=== PATIENT | female | born 1955 | race Caucasian/White ===

== ENCOUNTER 2021-03-21 14:21 | Outpatient (CLI) | payer OTHER ==
[2021-03-21 15:34] LABS: Hemoglobin 12.6 g/dL (12.0-15.5); Mean Corpuscular HGB CONC 34.1 g/dL (32.0-36.0); Mean Corpuscular Hemoglobin 29.5 pg (27.0-33.0); Mean Corpuscular Volume 86.4 fl (81.6-98.3); RBC Distribution Width 16.4 % (11.5-14.5); Red Blood Cell (RBC) Count 4.27 10x6/uL (3.90-5.03); White Blood Cell (WBC) Count 7.2 10x3/uL (3.5-10.5)
[2021-03-21 15:46] LABS: Platelet Count 165 10x3/uL (150-450)
[2021-03-21 16:06] LABS: Anion Gap 17 mmol/L (10-20); BUN (Urea Nitrogen) 17 mg/dL (9.8-20.1); Calc. Creatinine Clearance 0 mL/min (70-130); Calcium 9.4 mg/dL (7.8-10.44); Carbon Dioxide 25 mmol/L (23-31); Chloride 102 mmol/L (98-107); Glucose 260 mg/dL (80-115); Potassium 4.5 mmol/L (3.5-5.1); Sodium 139 mmol/L (136-145)
[2021-03-22 01:18] LABS: SARS-CoV-2 PCR by NAA Not Detected (NotDetected)
== END 2021-03-21 14:22 | disposition home or self-care (01) ==
LOC: LABBT 14:21
PROVIDERS: ATTEND Orthopaedic Surgery
DX: Z01.818 Encounter for other preprocedural examination (principal); M75.41 Impingement syndrome of right shoulder; M75.101 Unspecified rotator cuff tear or rupture of right shoulder, not specified as traumatic; Z20.822 Contact with and (suspected) exposure to COVID-19
CPT/HCPCS: 80048; 85027; 87635; 93005; 93010; U0003; U0005

== ENCOUNTER 2021-04-11 13:48 | Outpatient (CLI) | payer OTHER ==
[2021-04-11 17:41] LABS: Hemoglobin 13.2 g/dL (12.0-15.5); Mean Corpuscular HGB CONC 33.6 g/dL (32.0-36.0); Mean Corpuscular Hemoglobin 29.7 pg (27.0-33.0); Mean Corpuscular Volume 88.5 fl (81.6-98.3); Mean Platelet Volume 11.3 fl (7.4-10.4); Platelet Count 188 10x3/uL (150-450); RBC Distribution Width 16.5 % (11.5-14.5); Red Blood Cell (RBC) Count 4.44 10x6/uL (3.90-5.03); White Blood Cell (WBC) Count 6.4 10x3/uL (3.5-10.5)
[2021-04-11 17:53] LABS: Anion Gap 17 mmol/L (10-20); BUN (Urea Nitrogen) 21 mg/dL (9.8-20.1); Calc. Creatinine Clearance 0 mL/min (70-130); Carbon Dioxide 26 mmol/L (23-31); Chloride 102 mmol/L (98-107); Glucose 136 mg/dL (80-115); Potassium 4.3 mmol/L (3.5-5.1); Sodium 141 mmol/L (136-145)
[2021-04-12 02:11] LABS: SARS-CoV-2 PCR by NAA Not Detected (NotDetected)
== END 2021-04-11 13:49 | disposition home or self-care (01) ==
LOC: LABBT 13:48
PROVIDERS: ATTEND Orthopaedic Surgery
DX: Z01.812 Encounter for preprocedural laboratory examination (principal); M75.41 Impingement syndrome of right shoulder; M75.101 Unspecified rotator cuff tear or rupture of right shoulder, not specified as traumatic; Z20.822 Contact with and (suspected) exposure to COVID-19
CPT/HCPCS: 80048; 85027; 87635; U0003; U0005

== ENCOUNTER 2021-04-14 10:27 | Day surgery (SDC) | payer OTHER ==
[2021-04-13 14:55] VITALS: BMI 27.4
[2021-04-14] MEDS ORDERED: Midazolam HCl 2 mg/2 ml Vial ONE (12:11)
[2021-04-14] MEDS ORDERED: Fentanyl 100 MCG/2 ML VIAL ONE ×2 (12:11→12:40)
[2021-04-14] MEDS ORDERED: Fentanyl 100 MCG/2 ML VIAL IV PRN (12:43)
[2021-04-14] MEDS ORDERED: Promethazine HCl 25 MG/ML VIAL IM PRN (12:45)
[2021-04-14] MEDS ORDERED: traMADol HCl 50 MG TAB PO PRN ×2 (12:45)
[2021-04-14] MEDS ORDERED: Ondansetron PF 4 MG/2 ML Vial IVP PRN (12:45)
[2021-04-14] MEDS ORDERED: Ropivacaine 0.2% 550 ML 550 ML NERVE BLCK SCH (12:45)
[2021-04-14] MEDS ORDERED: Zolpidem Tartrate 5 MG TAB PO PRN (12:45)
[2021-04-14] MEDS ORDERED: HYDROcodone/Acetaminophen 5/325 mg Tablet PO PRN ×2 (12:45)
[2021-04-14] MEDS ORDERED: Ondansetron PF 4 MG/2 ML Vial ONE (13:26)
[2021-04-14] MEDS ORDERED: PROPOFOL 200 MG/20 ML VIAL ONE (13:26)
[2021-04-14] MEDS ORDERED: Succinylcholine 200 MG/10 ml SYRINGE FS ONE (13:26)
[2021-04-14] MEDS ORDERED: Glycopyrrolate 0.2 MG/ML 5 ML SYRINGE ONE (13:26)
[2021-04-14] MEDS ORDERED: ePHEDrine Sulfate 50 MG/10 ML VIAL ONE (13:26)
[2021-04-14] MEDS ORDERED: Ropivacaine 0.5% HCl/PF (150 MG/30 ML VIAL) ONE (13:26)
[2021-04-14] MEDS ORDERED: Lidocaine 1% PF 5 ML VIAL ONE (13:26)
[2021-04-14] MEDS ORDERED: Rocuronium Bromide 10 MG/ML (10ML VIAL) ONE (13:26)
== END 2021-04-14 17:35 | disposition home or self-care (01) ==
LOC: SDC 10:27
PROVIDERS: ATTEND Orthopaedic Surgery
PROC: 3E0T3BZ Introduction of Anesthetic Agent into Peripheral Nerves and Plexi, Percutaneous Approach (ICD-10-PCS; principal; 2021-04-14)
PROC: 0RBJ4ZZ Excision of Right Shoulder Joint, Percutaneous Endoscopic Approach (ICD-10-PCS; principal; 2021-04-14)
PROC: 0LQ14ZZ Repair Right Shoulder Tendon, Percutaneous Endoscopic Approach (ICD-10-PCS; principal; 2021-04-14)
DX: S46.011A Strain of muscle(s) and tendon(s) of the rotator cuff of right shoulder, initial encounter (principal); M75.41 Impingement syndrome of right shoulder; M65.811 Other synovitis and tenosynovitis, right shoulder; G89.18 Other acute postprocedural pain; E11.9 Type 2 diabetes mellitus without complications; F17.200 Nicotine dependence, unspecified, uncomplicated; Z79.82 Long term (current) use of aspirin; Z79.84 Long term (current) use of oral hypoglycemic drugs; Z79.899 Other long term (current) drug therapy; Z95.5 Presence of coronary angioplasty implant and graft; W19.XXXA Unspecified fall, initial encounter; Y99.0 Civilian activity done for income or pay
CPT/HCPCS: A4306; C1713; J0690; J2250; J2405; J2704; J2795; J3010

== ENCOUNTER 2021-11-09 15:15 | Inpatient (IN) | payer MEDICARE, OTHER ==
[2021-11-09] MEDS ORDERED: Morphine 4 MG/ML VIAL ONE ×2 (15:43→17:27)
[2021-11-09] MEDS ORDERED: CEFAZOLIN 2 GM in Premix Bag 1 BAG IVPB SCH (17:15)
[2021-11-09 17:21] LABS: #Eosinphils 0.1 thou/uL (0.0-0.7); #Lymphocytes 1.8 thou/uL (1.20-3.40); #Monocytes 0.6 thou/uL (0.11-0.59); %Basophils 0.2 % (0.0-1.0); %Eosinophils 0.9 % (0.0-10.0); %Lymphocytes 21.6 % (21.0-51.0); %Monocytes 6.5 % (0.0-10.0); %Neutrophils 70.8 % (42.0-75.0); Hemoglobin 13.3 g/dL (12.0-16.0); Mean Corpuscular HGB CONC 34.8 g/dL (32.0-36.0); Mean Corpuscular Hemoglobin 30.6 pg (27.0-31.0); Mean Platelet Volume 8.7 fL (7.4-10.4); Platelet Count 141 thou/uL (130-400); RBC Distribution Width 14.5 % (11.5-14.5); Red Blood Cell (RBC) Count 4.35 mill/uL (4.20-5.40); White Blood Cell (WBC) Count 8.4 thou/uL (4.8-10.8)
[2021-11-09 17:36] LABS: INR-International Normal Ratio 1.1; PTT 30.7 sec (22.9-36.1); Prothrombin Time 14.3 sec (12.0-14.7)
[2021-11-09] MEDS ORDERED: Ondansetron PF 4 MG/2 ML Vial IVP PRN (17:40)
[2021-11-09] MEDS ORDERED: hydrALAZINE 20 MG/ML VIAL SLOW IVP PRN (17:40)
[2021-11-09] MEDS ORDERED: Dextrose 50% Abboject 50 ML SYRINGE SLOW IVP PRN (17:40)
[2021-11-09] MEDS ORDERED: Dextrose 5% in Water 1,000 ML IV PRN (17:40)
[2021-11-09] MEDS ORDERED: traMADol HCl 50 MG TAB PO PRN ×2 (17:43)
[2021-11-09] MEDS ORDERED: Sodium Chloride 0.9% 1,000 ML IV SCH (17:45)
[2021-11-09 17:53] LABS: ALT (SGPT) 32 U/L (8-55); AST (SGOT) 39 U/L (5-34); Albumin 4.2 g/dL (3.4-4.8); Alkaline Phosphatase 63 U/L (40-110); Anion Gap 14 mmol/L (10-20); BUN (Urea Nitrogen) 14 mg/dL (9.8-20.1); Bilirubin, Total 0.7 mg/dL (0.2-1.2); Calc. Creatinine Clearance 0 mL/min (70-130); Carbon Dioxide 27 mmol/L (23-31); Chloride 105 mmol/L (98-107); Globulin 2.4 g/dL (2.4-3.5); Glucose 84 mg/dL (80-115); Potassium 3.9 mmol/L (3.5-5.1); Protein, Total 6.6 g/dL (5.8-8.1); Sodium 142 mmol/L (136-145)
[2021-11-09] MEDS ORDERED: Cyclobenzaprine 10 MG TAB ONE (18:28)
[2021-11-09] MEDS: Acetaminophen 500 MG TAB PO SCH ×2 (19:48→23:52)
[2021-11-09] MEDS: Famotidine/PF 20 mg/2ml Vial SLOW IVP SCH (20:46)
[2021-11-09] MEDS: Gabapentin 100 MG CAP PO SCH (20:46)
[2021-11-09] MEDS: Senokot S 8.6-50 MG TAB PO SCH (20:47)
[2021-11-09 21:04] VITALS: BMI 26.3
[2021-11-09] MEDS: Insulin Regular 300 UNITS/3 ML VIAL SC PRN (22:01)
[2021-11-10] LABS: SARS-CoV-2 NAA Rapid Test Not Detected (NotDetected)
[2021-11-10] MEDS ORDERED: Sodium Chloride 0.9% 1,000 ML IV SCH (00:01)
[2021-11-10] MEDS: Morphine 4 MG/ML VIAL SLOW IVP PRN ×2 (04:36→09:58)
[2021-11-10] MEDS: Acetaminophen 500 MG TAB PO SCH ×4 (06:29→23:19)
[2021-11-10 07:13] LABS: #Eosinphils 0.2 thou/uL (0.0-0.7); #Lymphocytes 1.5 thou/uL (1.20-3.40); #Monocytes 0.7 thou/uL (0.11-0.59); #Neutrophils 5.3 thou/uL (1.40-6.50); %Basophils 0.2 % (0.0-1.0); %Eosinophils 2.9 % (0.0-10.0); %Lymphocytes 19.4 % (21.0-51.0); %Monocytes 8.7 % (0.0-10.0); %Neutrophils 68.8 % (42.0-75.0); Anion Gap 12 mmol/L (10-20); BUN (Urea Nitrogen) 15 mg/dL (9.8-20.1); Calc. Creatinine Clearance 72 mL/min (70-130); Calcium 8.8 mg/dL (7.8-10.44); Carbon Dioxide 26 mmol/L (23-31); Chloride 107 mmol/L (98-107); Glucose 114 mg/dL (80-115); Hemoglobin 12.1 g/dL (12.0-16.0); Magnesium 1.7 mg/dL (1.6-2.6); Mean Corpuscular HGB CONC 34.5 g/dL (32.0-36.0); Mean Corpuscular Hemoglobin 30.3 pg (27.0-31.0); Mean Corpuscular Volume 87.9 fL (78.0-98.0); Phosphorus 3.7 mg/dL (2.3-4.7); Platelet Count 120 thou/uL (130-400); Potassium 3.9 mmol/L (3.5-5.1); RBC Distribution Width 14.7 % (11.5-14.5); Red Blood Cell (RBC) Count 3.99 mill/uL (4.20-5.40); Sodium 141 mmol/L (136-145); White Blood Cell (WBC) Count 7.7 thou/uL (4.8-10.8)
[2021-11-10] MEDS ORDERED: Magnesium 2 GM/50 ML 2 GM in Premix Bag 1 BAG IVPB SCH (08:00)
[2021-11-10] MEDS ORDERED: PHOS-NAK 1 PKT PACK PO SCH (08:00)
[2021-11-10] MEDS ORDERED: FLU VACC QS2021-22(65YR UP)/PF 240 MCG/0.7 ML SYRINGE IM ONE (09:00)
[2021-11-10] MEDS ORDERED: Atenolol 25 MG TAB PO SCH (09:00)
[2021-11-10] MEDS: Famotidine/PF 20 mg/2ml Vial SLOW IVP SCH ×2 (09:42→19:50)
[2021-11-10] MEDS: Gabapentin 100 MG CAP PO SCH ×3 (09:43→19:49)
[2021-11-10] MEDS: Polyethylene Glycol 3350 17 GM Packet PO SCH (09:43)
[2021-11-10] MEDS: Senokot S 8.6-50 MG TAB PO SCH ×2 (09:44→19:49)
[2021-11-10] MEDS: Rosuvastatin 20 MG TAB PO SCH (09:58)
[2021-11-10] MEDS ORDERED: Fentanyl 100 MCG/2 ML VIAL ONE (12:19)
[2021-11-10] MEDS ORDERED: ceFAZolin 2 GM/DEX 5% 100 ML BAG ONE (13:04)
[2021-11-10] MEDS ORDERED: Dexamethasone 20 MG/5 ML VIAL ONE (13:17)
[2021-11-10] MEDS ORDERED: Phenylephrine 10 MG/ML VIAL ONE (13:17)
[2021-11-10] MEDS ORDERED: Lidocaine 1% PF 5 ML VIAL ONE (13:17)
[2021-11-10] MEDS ORDERED: Rocuronium Bromide 10 MG/ML (10ML VIAL) ONE (13:17)
[2021-11-10] MEDS ORDERED: PROPOFOL 200 MG/20 ML VIAL ONE (13:17)
[2021-11-10] MEDS ORDERED: Glycopyrrolate 0.2 MG/ML 5 ML SYRINGE ONE (13:17)
[2021-11-10] MEDS ORDERED: ePHEDrine 50 MG/ML VIAL ONE (13:17)
[2021-11-10] MEDS ORDERED: Ondansetron PF 4 MG/2 ML Vial ONE (13:17)
[2021-11-10] MEDS: Icosapent Ethyl 1 GM CAPSULE PO SCH (18:52)
[2021-11-10] MEDS: Atenolol 50 MG TAB PO SCH (19:50)
[2021-11-10] MEDS ORDERED: Atenolol 50 MG TAB PO SCH (21:00)
[2021-11-10] MEDS: ceFAZolin Sodium/D5W 2 GM in Premix Bag 1 BAG IVPB SCH (21:24)
[2021-11-10] MEDS: Insulin Regular 300 UNITS/3 ML VIAL SC PRN (21:24)
[2021-11-11] MEDS: Acetaminophen 500 MG TAB PO SCH ×4 (06:16→23:50)
[2021-11-11] MEDS: CEFAZOLIN 2 GM in Premix Bag 1 BAG IVPB SCH ×2 (06:19→14:47)
[2021-11-11] MEDS: ceFAZolin Sodium/D5W 2 GM in Premix Bag 1 BAG IVPB SCH (06:22)
[2021-11-11 06:31] LABS: #Eosinphils 0.1 thou/uL (0.0-0.7); #Monocytes 0.7 thou/uL (0.11-0.59); #Neutrophils 7.6 thou/uL (1.40-6.50); %Basophils 0.4 % (0.0-1.0); %Eosinophils 0.9 % (0.0-10.0); %Lymphocytes 10.7 % (21.0-51.0); %Monocytes 7.8 % (0.0-10.0); %Neutrophils 80.2 % (42.0-75.0); Hemoglobin 10.3 g/dL (12.0-16.0); Mean Corpuscular HGB CONC 34.2 g/dL (32.0-36.0); Mean Corpuscular Hemoglobin 30.2 pg (27.0-31.0); Mean Corpuscular Volume 88.3 fL (78.0-98.0); Mean Platelet Volume 8.9 fL (7.4-10.4); Platelet Count 124 thou/uL (130-400); RBC Distribution Width 14.9 % (11.5-14.5); Red Blood Cell (RBC) Count 3.39 mill/uL (4.20-5.40); White Blood Cell (WBC) Count 9.5 thou/uL (4.8-10.8)
[2021-11-11 06:48] LABS: Anion Gap 13 mmol/L (10-20); BUN (Urea Nitrogen) 16 mg/dL (9.8-20.1); Calc. Creatinine Clearance 71 mL/min (70-130); Calcium 8.8 mg/dL (7.8-10.44); Carbon Dioxide 26 mmol/L (23-31); Chloride 102 mmol/L (98-107); Glucose 124 mg/dL (80-115); Phosphorus 3.6 mg/dL (2.3-4.7); Potassium 4.2 mmol/L (3.5-5.1); Sodium 137 mmol/L (136-145)
[2021-11-11] MEDS ORDERED: Sodium Chloride 0.9% 1,000 ML IV SCH (08:45)
[2021-11-11] MEDS: Icosapent Ethyl 1 GM CAPSULE PO SCH ×2 (09:58→18:06)
[2021-11-11] MEDS: Rosuvastatin 20 MG TAB PO SCH (09:59)
[2021-11-11] MEDS: Famotidine/PF 20 mg/2ml Vial SLOW IVP SCH (09:59)
[2021-11-11] MEDS: Polyethylene Glycol 3350 17 GM Packet PO SCH (09:59)
[2021-11-11] MEDS: Gabapentin 100 MG CAP PO SCH ×3 (09:59→20:41)
[2021-11-11] MEDS: Senokot S 8.6-50 MG TAB PO SCH ×2 (10:00→20:41)
[2021-11-11] MEDS: Cyclobenzaprine 10 MG TAB PO PRN (10:04)
[2021-11-11] MEDS: Aspirin 81 mg Enteric Coated Tablet PO SCH ×2 (10:04→20:42)
[2021-11-11] MEDS: Insulin Regular 300 UNITS/3 ML VIAL SC PRN ×2 (12:31→18:06)
[2021-11-11] MEDS: Atenolol 50 MG TAB PO SCH (20:42)
[2021-11-12 05:39] LABS: #Eosinphils 0.3 thou/uL (0.0-0.7); #Lymphocytes 1.6 thou/uL (1.20-3.40); #Monocytes 0.5 thou/uL (0.11-0.59); #Neutrophils 4.2 thou/uL (1.40-6.50); %Basophils 0.3 % (0.0-1.0); %Eosinophils 4.7 % (0.0-10.0); %Lymphocytes 24.2 % (21.0-51.0); %Monocytes 7.9 % (0.0-10.0); Hemoglobin 8.7 g/dL (12.0-16.0); Mean Corpuscular HGB CONC 34.7 g/dL (32.0-36.0); Mean Corpuscular Hemoglobin 30.7 pg (27.0-31.0); Mean Corpuscular Volume 88.3 fL (78.0-98.0); Mean Platelet Volume 8.5 fL (7.4-10.4); Platelet Count 108 thou/uL (130-400); RBC Distribution Width 14.9 % (11.5-14.5); Red Blood Cell (RBC) Count 2.83 mill/uL (4.20-5.40); White Blood Cell (WBC) Count 6.7 thou/uL (4.8-10.8)
[2021-11-12 06:07] LABS: Anion Gap 12 mmol/L (10-20); BUN (Urea Nitrogen) 13 mg/dL (9.8-20.1); Calc. Creatinine Clearance 75 mL/min (70-130); Calcium 8.4 mg/dL (7.8-10.44); Carbon Dioxide 25 mmol/L (23-31); Chloride 107 mmol/L (98-107); Glucose 157 mg/dL (80-115); Magnesium 1.7 mg/dL (1.6-2.6); Phosphorus 1.9 mg/dL (2.3-4.7); Potassium 3.8 mmol/L (3.5-5.1); Sodium 140 mmol/L (136-145)
[2021-11-12] MEDS: Acetaminophen 500 MG TAB PO SCH ×4 (06:23→23:43)
[2021-11-12] MEDS ORDERED: Magnesium Sulfate 2 GM in Sodium Chloride 0.9% 100 ML IVPB SCH (06:35)
[2021-11-12] MEDS ORDERED: Potassium Phosphate 30 MMOL, Magnesium Sulfate 2 GM in Sodium Chloride 0.9% 250 ML IVPB SCH (08:00)
[2021-11-12] MEDS: Polyethylene Glycol 3350 17 GM Packet PO SCH (09:44)
[2021-11-12] MEDS: Rosuvastatin 20 MG TAB PO SCH (09:44)
[2021-11-12] MEDS: Icosapent Ethyl 1 GM CAPSULE PO SCH ×2 (09:44→16:39)
[2021-11-12] MEDS: Senokot S 8.6-50 MG TAB PO SCH ×2 (09:44→20:10)
[2021-11-12] MEDS: Aspirin 81 mg Enteric Coated Tablet PO SCH ×2 (09:44→20:11)
[2021-11-12] MEDS: Gabapentin 100 MG CAP PO SCH ×3 (09:45→20:11)
[2021-11-12] MEDS: Insulin Regular 300 UNITS/3 ML VIAL SC PRN ×2 (13:28→16:38)
[2021-11-12] MEDS: Cyclobenzaprine 10 MG TAB PO PRN (20:10)
[2021-11-12] MEDS: Atenolol 50 MG TAB PO SCH (20:14)
[2021-11-12] MEDS ORDERED: Ezetimibe 10 MG TAB PO SCH (21:00)
[2021-11-13] MEDS: Acetaminophen 500 MG TAB PO SCH ×2 (05:29→12:07)
[2021-11-13 06:12] LABS: #Eosinphils 0.3 thou/uL (0.0-0.7); #Lymphocytes 1.7 thou/uL (1.20-3.40); #Monocytes 0.4 thou/uL (0.11-0.59); #Neutrophils 3.2 thou/uL (1.40-6.50); %Basophils 0.4 % (0.0-1.0); %Eosinophils 4.9 % (0.0-10.0); %Lymphocytes 30.7 % (21.0-51.0); Hemoglobin 8.8 g/dL (12.0-16.0); Mean Corpuscular HGB CONC 33.7 g/dL (32.0-36.0); Mean Corpuscular Hemoglobin 30.3 pg (27.0-31.0); Mean Corpuscular Volume 89.8 fL (78.0-98.0); Mean Platelet Volume 8.8 fL (7.4-10.4); Platelet Count 129 thou/uL (130-400); Red Blood Cell (RBC) Count 2.91 mill/uL (4.20-5.40); White Blood Cell (WBC) Count 5.7 thou/uL (4.8-10.8)
[2021-11-13 06:56] LABS: Anion Gap 14 mmol/L (10-20); BUN (Urea Nitrogen) 12 mg/dL (9.8-20.1); Calc. Creatinine Clearance 79 mL/min (70-130); Calcium 9.1 mg/dL (7.8-10.44); Carbon Dioxide 20 mmol/L (23-31); Chloride 109 mmol/L (98-107); Glucose 150 mg/dL (80-115); Magnesium 1.6 mg/dL (1.6-2.6); Potassium 4.1 mmol/L (3.5-5.1); Sodium 139 mmol/L (136-145)
[2021-11-13] MEDS ORDERED: PHOS-NAK 1 PKT PACK PO SCH (08:00)
[2021-11-13] MEDS ORDERED: Magnesium 2 GM/50 ML 2 GM in Premix Bag 1 BAG IVPB SCH (08:00)
[2021-11-13] MEDS: Senokot S 8.6-50 MG TAB PO SCH (09:50)
[2021-11-13] MEDS: Aspirin 81 mg Enteric Coated Tablet PO SCH (09:50)
[2021-11-13] MEDS: Polyethylene Glycol 3350 17 GM Packet PO SCH (09:50)
[2021-11-13] MEDS: Rosuvastatin 20 MG TAB PO SCH (09:50)
[2021-11-13] MEDS: Icosapent Ethyl 1 GM CAPSULE PO SCH (09:50)
[2021-11-13] MEDS: Gabapentin 100 MG CAP PO SCH ×2 (09:51→15:58)
[2021-11-13] MEDS: Insulin Regular 300 UNITS/3 ML VIAL SC PRN (12:06)
[2021-11-13 16:21] VITALS: BP 115/70; TEMP 98.2
== END 2021-11-13 16:38 | disposition home or self-care (01) | DRG 522 ==
LOC: ERS 15:15 → SURG A 17:43
PROVIDERS: ADMIT Specialist; ATTEND Specialist
PROC: 0SRS0JZ Replacement of Left Hip Joint, Femoral Surface with Synthetic Substitute, Open Approach (ICD-10-PCS; principal; 2021-11-09)
DX: S72.032A Displaced midcervical fracture of left femur, initial encounter for closed fracture (principal); W18.30XA Fall on same level, unspecified, initial encounter; Z20.822 Contact with and (suspected) exposure to COVID-19; E11.51 Type 2 diabetes mellitus with diabetic peripheral angiopathy without gangrene; I10 Essential (primary) hypertension; E78.5 Hyperlipidemia, unspecified; F17.220 Nicotine dependence, chewing tobacco, uncomplicated; Z79.82 Long term (current) use of aspirin; Z79.84 Long term (current) use of oral hypoglycemic drugs; Z79.899 Other long term (current) drug therapy; E83.39 Other disorders of phosphorus metabolism
CPT/HCPCS: 36415; 36416; 71045; 72170; 80048; 80053; 83735; 84100; 85025; 85610; 85730; 93005; 96374; 96376; C1713; C1776; G0390; J0690; J1100; J1815; J2270; J2370; J2405; J2704; J3010; J3475; J3490; J7030; J7050; S0028; U0002

== ENCOUNTER 2022-06-09 12:58 | Outpatient (CLI) | payer MEDICARE | END 2022-06-09 12:59 | disposition home or self-care (01) | LOC: BICMAMMO 12:58 | PROVIDERS: ATTEND Family Medicine | DX: Z12.31 Encounter for screening mammogram for malignant neoplasm of breast (principal) | CPT/HCPCS: 77063; 77067 ==

== ENCOUNTER 2022-09-18 09:16 | Outpatient (CLI) | payer MEDICARE ==
[2022-09-18] MEDS ORDERED: Iopamidol-370 76% 500 ML 1 ML ONE (12:12)
== END 2022-09-18 09:17 | disposition home or self-care (01) ==
LOC: BICCT 09:16
PROVIDERS: ATTEND Optometrist
DX: E07.89 Other specified disorders of thyroid (principal); E04.2 Nontoxic multinodular goiter
CPT/HCPCS: 70491; 82565; Q9967

== ENCOUNTER 2022-10-23 14:24 | Outpatient (CLI) | payer MEDICARE | END 2022-10-23 14:25 | disposition home or self-care (01) | LOC: BICULT 14:24 | PROVIDERS: ATTEND Internal Medicine Cardiovascular Disease | DX: E07.9 Disorder of thyroid, unspecified (principal) | CPT/HCPCS: 76536 ==

== ENCOUNTER 2023-01-23 10:34 | Outpatient (CLI) | payer MEDICARE | END 2023-01-23 10:35 | disposition home or self-care (01) | LOC: BICMAMMO 10:34 | PROVIDERS: ATTEND Internal Medicine Endocrinology, Diabetes & Metabolism | DX: M81.8 Other osteoporosis without current pathological fracture (principal); M85.89 Other specified disorders of bone density and structure, multiple sites | CPT/HCPCS: 77080 ==

== ENCOUNTER 2023-01-30 12:25 | Outpatient (CLI) | payer MEDICARE | END 2023-01-30 12:26 | disposition home or self-care (01) | LOC: BICCT 12:25 | PROVIDERS: ATTEND Internal Medicine | DX: R91.1 Solitary pulmonary nodule (principal) | CPT/HCPCS: 71250 ==

== ENCOUNTER 2023-09-21 12:31 | Outpatient (CLI) | payer MEDICARE | END 2023-09-21 12:32 | disposition home or self-care (01) | LOC: BICCT 12:31 | PROVIDERS: ATTEND Internal Medicine | DX: R91.1 Solitary pulmonary nodule (principal); J98.4 Other disorders of lung | CPT/HCPCS: 71250 ==

== ENCOUNTER 2023-10-29 10:30 | Outpatient (CLI) | payer MEDICARE | END 2023-10-29 10:31 | disposition home or self-care (01) | LOC: BICRAD 10:30 | PROVIDERS: ATTEND Internal Medicine | DX: M54.50 Low back pain, unspecified (principal); M47.816 Spondylosis without myelopathy or radiculopathy, lumbar region; M51.36 Other intervertebral disc degeneration, lumbar region | CPT/HCPCS: 72100 ==

== ENCOUNTER 2023-12-31 11:08 | Outpatient (CLI) | payer MEDICARE | END 2023-12-31 11:09 | disposition home or self-care (01) | LOC: BICMAMMO 11:08 | PROVIDERS: ATTEND Internal Medicine | DX: Z12.31 Encounter for screening mammogram for malignant neoplasm of breast (principal); Z80.3 Family history of malignant neoplasm of breast; Z85.828 Personal history of other malignant neoplasm of skin | CPT/HCPCS: 77063; 77067 ==

== ENCOUNTER 2024-10-16 12:57 | Outpatient (CLI) | payer MEDICARE | END 2024-10-16 12:58 | disposition home or self-care (01) | LOC: BICCT 12:57 | PROVIDERS: ATTEND Internal Medicine | DX: R91.1 Solitary pulmonary nodule (principal); J98.4 Other disorders of lung | CPT/HCPCS: 71250 ==